=== PATIENT | female | born 1970 | race Caucasian/White ===

== ENCOUNTER 2025-01-09 09:15 | Inpatient (IN) | payer BC ==
[2025-01-09] VITALS (12 sets, daily range): BP systolic 123–161; BP diastolic 72–98
[~2025-01-09] VITALS: Ht 160 cm; Wt 48.2 kg
[2025-01-09] MEDS ORDERED: SODIUM CHLORIDE 0.9% 1,000 ML IV ONE (10:00)
[2025-01-09] MEDS ORDERED: Ondansetron Hydrochloride 4 MG/2 ML VIAL IV ONE (10:00)
[2025-01-09] MEDS ORDERED: CALCIUM (TUMS) 500MG PO ONE (10:05)
[2025-01-09 10:44] LABS: ACT PARTIAL THROMBO TIME 26.8 SECONDS (20.0-32.1)
[2025-01-09] MEDS ORDERED: SODIUM CHLORIDE 0.9% 500 ML IV ONE (11:37)
[2025-01-09] MEDS ORDERED: HEPARIN SO5000 UNIT1 IJ (12:12)
[2025-01-09] MEDS ORDERED: NEURONTIN300 MG PO (12:12)
[2025-01-09] MEDS ORDERED: HUMALOG100 UNIT/2 SQ (12:13)
[2025-01-09] MEDS ORDERED: LEVOTHYROXINE75 MC1 PO (12:14)
[2025-01-09] MEDS ORDERED: PANCREAZE PO (12:15)
[2025-01-09] MEDS ORDERED: HEALTHYLAX17 GM GT (12:15)
[2025-01-09] MEDS ORDERED: SERTRALINE HYDR25 MG PO (12:16)
[2025-01-09] MEDS ORDERED: SEROQUEL25 MG PO ×2 (12:16→16:15)
[2025-01-09] MEDS ORDERED: MYLICON, MYLANT80 MG PO (12:17)
[2025-01-09] MEDS ORDERED: ACETAMINOPHEN 650 MG SUPP R PRN (13:20)
[2025-01-09] MEDS ORDERED: Ondansetron Hydrochloride 4 MG/2 ML VIAL IV PRN (13:20)
[2025-01-09 14:04] LABS: BUN 34 mg/dl (9-23); LDH 235 U/L (120-246); SGPT/ALT 63 U/L (5-49)
[2025-01-09] MEDS ORDERED: INSULIN REGULAR, HUMAN 1 UNIT/0.01 ML IV ONE (14:15)
[2025-01-09] MEDS ORDERED: DEXTROSE 50% 25 GM/50 ML SYR IV ONE (14:15)
[2025-01-09] MEDS ORDERED: SODIUM BICARBONATE 50 MEQ/50 ML VIAL IV ONE (14:15)
[2025-01-09] MEDS ORDERED: DEXTROSE 50% 25 GM/50 ML VIAL IV PRN (14:30)
[2025-01-09] MEDS ORDERED: FOAM BANDAGE HEEL T ONE (14:40)
[2025-01-09] MEDS ORDERED: FOAM BANDAGE 1 EACH BANDAGE T ONE (14:40)
[2025-01-09] MEDS ORDERED: PAIN RELIEVER325 MG PO (15:52)
[2025-01-09] MEDS ORDERED: BISACODYL10 MG R (15:54)
[2025-01-09] MEDS ORDERED: FLEET ENEMA 13133 ML R (15:59)
[2025-01-09 16:05] LABS: BUN 34 mg/dl (9-23)
[2025-01-09] MEDS ORDERED: Ipratropium Brom3 ML INH (16:05)
[2025-01-09] MEDS ORDERED: MILK OF MA2400 MG/11 PO (16:06)
[2025-01-09] MEDS ORDERED: OMEPRAZOLE40 MG PO (16:07)
[2025-01-09] MEDS ORDERED: OXYCODONE HCL10 M1 PEG (16:09)
[2025-01-09] MEDS ORDERED: ROXICODONE15 MG PEG (16:11)
[2025-01-09] MEDS ORDERED: INSULIN LISPRO 1 UNIT/0.01 ML SQ SCH (16:30)
[2025-01-09] MEDS ORDERED: SODIUM POLYSTYRENE SULFONATE 15 GM/60 ML BOT PEG ONE (17:10)
[2025-01-09] MEDS ORDERED: BISACODYL 10 MG SUPP R PRN (18:25)
[2025-01-09] MEDS ORDERED: Albuterol Sulf/Ipratropium 3 ML VIAL NEB PRN (18:30)
[2025-01-09] MEDS ORDERED: GABAPENTIN 300 MG CAP PO SCH (22:00)
[2025-01-10] MEDS ORDERED: SIMETHICONE 80 MG TAB PO SCH (10:00)
== END 2025-01-09 21:41 | disposition short-term general hospital (02) | DRG 377 ==
LOC: ED 09:15 → EDHOLD 12:01 → 4E 12:01 → EDHOLD 13:32 → 4E 14:03
PROVIDERS: Emergency Medicine; ADMIT Internal Medicine; ATTEND Internal Medicine
PROC: 30233N1 Transfusion of Nonautologous Red Blood Cells into Peripheral Vein, Percutaneous Approach (ICD-10-PCS; principal; 2025-01-09)
DX: K92.2 Gastrointestinal hemorrhage, unspecified (principal); E43 Unspecified severe protein-calorie malnutrition; D61.818 Other pancytopenia; D64.9 Anemia, unspecified; K74.60 Unspecified cirrhosis of liver; E87.5 Hyperkalemia; I10 Essential (primary) hypertension; E89.0 Postprocedural hypothyroidism; E11.65 Type 2 diabetes mellitus with hyperglycemia; K86.81 Exocrine pancreatic insufficiency; Z93.0 Tracheostomy status; Z87.891 Personal history of nicotine dependence; Z85.850 Personal history of malignant neoplasm of thyroid; Z82.49 Family history of ischemic heart disease and other diseases of the circulatory system; Z88.0 Allergy status to penicillin; Z91.040 Latex allergy status; Z79.899 Other long term (current) drug therapy; Z79.4 Long term (current) use of insulin